=== PATIENT | male | born 1985 | race Caucasian/White ===

== ENCOUNTER 2022-02-25 12:30 | Emergency (ER) | payer BC ==
[2022-02-25] MEDS ORDERED: Lactated Ringers 1,000 ML IV ONE (12:59)
[2022-02-25] MEDS ORDERED: Sodium Chloride 0.9% 10 ML Syringe FLUSH PRN (12:59)
[2022-02-25] MEDS ORDERED: Ondansetron 4 MG/2 ML SDV ONE (13:00)
[2022-02-25 13:26] LABS: ANION GAP 9.6 meq/L (7-15); CHLORIDE,CL 103 mmol/L (98-107); SODIUM,NA 139 mmol/L (136-145)
[2022-02-25 13:30] LABS: ESTIMATED GFR 100 mL/min (>=60)
[2022-02-25 14:03] LABS: CORONAVIRUS COVID-19 NAA NEGATIVE (NEGATIVE); RESPIRATORY SYNCYTIAL VIR NAA NEGATIVE (NEGATIVE)
[2022-02-25] MEDS ORDERED: Prochlorperazine 10 MG/2 ML SDV IVPUSH ONE (14:44)
[2022-02-25] MEDS ORDERED: LORazepam 2 MG/ML SDV IVPUSH ONE (14:44)
== END 2022-02-25 16:50 | disposition home or self-care (01) ==
LOC: LL.ED 12:30
DX: R11.2 Nausea with vomiting, unspecified (principal); F28 Other psychotic disorder not due to a substance or known physiological condition; Z88.8 Allergy status to other drugs, medicaments and biological substances; Z20.822 Contact with and (suspected) exposure to COVID-19
CPT/HCPCS: 0241U; 36415; 80053; 83735; 85025; 86140; 96361; 96374; 96375; 99284; J0780; J2060; J2405; J3490; J7120